=== PATIENT | male | born 1995 | race Two or more races ===

== ENCOUNTER 2024-09-04 06:46 | Emergency (ER) | payer OTHER ==
[~2024-09-04] VITALS: Ht 177.8 cm; Wt 115.7 kg
[2024-09-04] MEDS ORDERED: KETOROLAC TROMETHAMINE 15 MG/ML VIAL ONE (07:59)
[2024-09-04] MEDS ORDERED: METH4TAB17 PO (08:00)
[2024-09-04] MEDS ORDERED: CYCL5TAB PO (08:00)
[2024-09-04] MEDS ORDERED: LIDO30AD10 TP (08:00)
[2024-09-04] MEDS ORDERED: IBUP-1955 PO (08:00)
[2024-09-04] MEDS ORDERED: LIDOCAINE 5% (PATCH) 1 EA PATCH TP ONE (08:00)
[2024-09-04] MEDS: LIDOCAINE 5% (PATCH) 1 EA PATCH TP STA (08:04)
[2024-09-04] MEDS: KETOROLAC TROMETHAMINE 15 MG/ML VIAL IM ONE (08:06)
[2024-09-04 08:16] VITALS: BP 143/87; TEMP 98.3; O2SAT 98
== END 2024-09-04 08:17 | disposition home or self-care (01) ==
LOC: ER 06:57
DX: M54.31 Sciatica, right side (principal); R20.0 Anesthesia of skin; R20.2 Paresthesia of skin
CPT/HCPCS: 99283; 96372; J1885